=== PATIENT | male | born 1965 | race African-American/Black ===

== ENCOUNTER 2021-08-24 15:48 | Emergency (ER) | payer BC ==
[~2021-08-24] VITALS: Ht 165.1 cm; Wt 90.0 kg
[2021-08-24 16:21] VITALS: BP 199/96
[2021-08-24] MEDS ORDERED: HYDROcodone/APAP 5/325MG 1 TAB TABLET PO ONE (17:15)
--- NOTE | 2021-08-24 17:28 | PHYS DOC ---
Past Medical History Past Surgical History: No Surgical History General Adult EDM: Chief Complaint: ANKLE PROBLEM HPI: HPI: Patient is a 55 year old male who presents with was going down some stairs when he missed the last stair and slipped injuring his left ankle. He has swelling and pain to left medial and lateral side of his ankle. States he cannot bear weight on it. He did not take any pain medication prior to arrival. He rates his pain a aching 9/10. Denies numbness or tingling or focal weakness. Review of Systems: Review of Systems: Constitutional: Denies fever or chills. [] Eyes: Denies change in visual acuity. [] HENT: Denies nasal congestion or sore throat. [] Respiratory: Denies cough or shortness of breath. [] Cardiovascular: Denies chest pain or edema. [] GI: Denies abdominal pain, nausea, vomiting, bloody stools or diarrhea. [] : Denies dysuria. [] Musculoskeletal: Denies back pain or joint pain. [] Integument: Denies rash. [] Neurologic: Denies headache, focal weakness or sensory changes. [] Endocrine: Denies polyuria or polydipsia. [] Lymphatic: Denies swollen glands. [] Psychiatric: Denies depression or anxiety. [] Heart Score: C/O Chest Pain: No Current Medications: Current Medications Medications (Trade) Dose Ordered Sig/Renetta Start Time Stop Time Status Last Admin Dose Admin Acetaminophen/ Hydrocodone Bitart (Lortab 5/325) 1 tab 1X ONCE 08/24/21 17:15 08/24/21 17:16 DC Allergies: Allergies: Allergies Coded Allergies Type Severity Reaction Last Updated Verified No Known Drug Allergies 08/24/21 No Physical Exam: PE: Constitutional: Well developed, well nourished, no acute distress, non-toxic appearance. [] HENT: Normocephalic, atraumatic, bilateral external ears normal, oropharynx moist, no oral exudates, nose normal. [] Eyes: PERRLA, EOMI, conjunctiva normal, no discharge. [] Neck: Normal range of motion, no tenderness, supple, no stridor. [] Cardiovascular:Heart rate regular rhythm, no murmur [] Lungs & Thorax: Bilateral breath sounds clear to auscultation [] Abdomen: Bowel sounds normal, soft, no tenderness, no masses, no pulsatile masses. [] Skin: Warm, dry, no erythema, no rash. [] Back: No tenderness, no CVA tenderness. [] Extremities: No tenderness, no cyanosis, no clubbing, ROM intact, no edema. [] Neurologic: Alert and oriented X 3, normal motor function, normal sensory function, no focal deficits noted. [] Psychologic: Affect normal, judgement normal, mood normal. [] Current Patient Data: Vital Signs: Vital Signs Date Time Temp Pulse Resp B/P (MAP) Pulse Ox O2 Delivery O2 Flow Rate FiO2 08/24/21 16:21 98.9 80 16 199/96 (130) 94 Room Air 98.9 EKG: EKG: [] Radiology/Procedures: Radiology/Procedures: [] Impression: [facility] [address] [place] [address] IMAGING REPORT Signed PATIENT: DORENE NIETO ACCOUNT: [id number] : 1965 LOCATION: ER AGE: 55 SEX: M EXAM STATUS: REG ER ORD. PHYSICIAN: BOOM DAS APRN REASON: pain PROCEDURE: ANKLE LEFT 3V EXAMINATION: Left ankle radiograph. VIEWS: 3 views COMPARISON: None INDICATION:55 years, Male, pain. FINDINGS: Obliquely oriented mildly displaced fracture of the distal fibula at the tibiofibular syndesmosis. Ankle mortise appears congruent. No evidence of dislocation. Soft tissue swelling about the ankle. IMPRESSION: Acute mildly displaced distal fibular Lora B fracture. Electronically signed by: Khari Peralta DO (08/24/2021 5:26 PM) [facility] DICTATED and SIGNED BY: KHARI PERALTA DO DATE: 08/24/21 [id number] 0 Course & Med Decision Making: Course & Med Decision Making Pertinent Labs and Imaging studies reviewed. (See chart for details) See HPI. Alert and oriented x4. Ambulatory with a steady gait but limping on the left lower extremity. Left ankle is swollen 2+ with tenderness to the late ral and medial aspect of the ankle. No bruising noted. No deformity noted. No laxity but range of motion is not intact due to swelling and pain. He can wiggle his toes. Pedal pulses strong present. Skin pink warm and dry. Cap refill less than 2 seconds. Patient placed in a stirrup and posterior splint. Patient be given a prescription for crutches. I spoke to Dr. Hughes the orthopedic and he states that the patient can call the office tomorrow morning and they will work him in to be seen this week. Splint assessment: Neurovascularly intact post splint replacement with good fit. Patient's extremity symptoms have stabilized well they have been evaluated in the department and are appropriate for outpatient follow-up. No evidence of compartment syndrome, neurologic injury, vascular injury, open joint, open fracture, tendon laceration, or foreign body. [] Dragon Disclaimer: Dragon Disclaimer: This electronic medical record was generated, in whole or in part, using a voice recognition dictation system. Departure Departure Impression: Primary Impression: Ankle fracture, left Qualified Codes: S82.892A - Other fracture of left lower leg, initial encounter for closed fracture Disposition: HOME / SELF CARE / HOMELESS Condition: STABLE Referrals: NO PCP (PCP) MARQUES HUGHES Jr. DO Patient Instructions: Ankle Fracture with Rehab-SportsMed, Cast or Splint Care Additional Instructions: Follow-up with orthopedic by calling tomorrow to get an appointment. Leave your splint on. Use crutches. Remain nonweightbearing. Take medication as prescribed and with food. Member these medications can make you sleepy so do not drive, work heavy machinery or drink alcohol top of them. Scripts Hydrocodone Bit/Acetaminophen (HYDROCODONE-APAP 5-325 ) 1 Tab Tablet 1 TAB PO PRN Q6HRS PRN for PAIN, #15 TAB 0 Refills Prov: SAM WILBURN APRN 08/24/21 SAM WILBURN APRN Aug 24, 2021 17:28
[2021-08-24] MEDS ORDERED: HYDR-2761 PO (17:48)
== END 2021-08-24 18:46 | disposition home or self-care (01) ==
LOC: ER 15:48
DX: S82.892A Other fracture of left lower leg, initial encounter for closed fracture (principal); X50.9XXA Other and unspecified overexertion or strenuous movements or postures, initial encounter; Y93.89 Activity, other specified; Y92.89 Other specified places as the place of occurrence of the external cause; Y99.8 Other external cause status
CPT/HCPCS: 29515; 73610; 99283

== ENCOUNTER → 2021-08-26 | Outpatient (CLI) | payer BC ==
[2021-08-24 16:21] VITALS: BP 199/96
[~2021-08-26] MED LIST: AMLO-187 PO; HYDR-2761 PO; LISI5TAB15 PO
== END ==
LOC: LAB 11:39
PROVIDERS: ATTEND Podiatrist
DX: Z01.812 Encounter for preprocedural laboratory examination (principal); Z20.822 Contact with and (suspected) exposure to COVID-19
CPT/HCPCS: U0003

== ENCOUNTER 2021-08-27 08:27 | Day surgery (SDC) | payer BC ==
[~2021-08-27] VITALS: Ht 167.6 cm; Wt 107.2 kg
[~2021-08-27 08:27] MED LIST changes: -AMLO-187 PO; +HYDROmorphone 2 MG/ML INJ. IVP PRN; +IV RINGERS,LACTATED 1000ML 1,000 ML IV SCH; -LISI5TAB15 PO; +PROCHLORPERAZINE 10 MG/2 ML VIAL. IVP PRN; +fentaNYL PF VIAL 100 MCG/2 ML VIAL IVP PRN
[2021-08-27] MEDS ORDERED: DEXAMETHASONE SOD PHOS 4 MG/ML VIAL ONE (08:47)
[2021-08-27] MEDS ORDERED: ONDANSETRON PF 4 MG/2 ML VIAL. ONE (08:47)
[2021-08-27] MEDS ORDERED: LIDOCAINE 2% PF 5 ML VIAL. ONE (08:47)
[2021-08-27] MEDS ORDERED: PROPOFOL 10 MG/ML (20ML) VIAL. IV ONE (08:47)
[2021-08-27] MEDS ORDERED: fentaNYL PF VIAL 100 MCG/2 ML VIAL ONE ×3 (08:48→12:25)
--- NOTE | 2021-08-27 08:58 | PDOC1 ---
History and Physical Date of Service: DOS: DATE: 08/27/21 TIME: 08:55 Chief Complaint: Chief Complain: ankle fracture History of Present Illness: HPI: History from ED on previous visit "Patient is a 55 year old male who presents with was going down some stairs when he missed the last stair and slipped injuring his left ankle. He has swelling and pain to left medial and lateral side of his ankle. States he cannot bear weight on it. He did not take any pain medication prior to arrival. He rates his pain a aching 9/10. Denies numbness or tingling or focal weakness." Imaging revealed left ankle fracture during that presentation. Patient is now here for surgical correction with Dr. Jiménez. He was doing well when seen at bedside. Held his BP meds this AM. Pain controlled, eager for surgery. Past Medical/Surgical History: PMH/PSH: HTN Allergies: Allergies: Coded Allergies: No Known Drug Allergies (Unverified , 08/26/21) Family History: Family History: HTN Social History: Social History: denies alcohol, tobacco, drug use Current Medications: Current Medications Current Medications Fentanyl Citrate (Fentanyl 2ml Vial) 25 mcg PRN Q5MIN PRN IVP MILD PAIN 1-3; Start 08/27/21 at 06:00; Stop 08/28/21 at 05:59 Fentanyl Citrate (Fentanyl 2ml Vial) 50 mcg PRN Q5MIN PRN IVP MODERATE PAIN 4- 6; Start 08/27/21 at 06:00; Stop 08/28/21 at 05:59 Morphine Sulfate (Morphine Sulfate) 1 mg PRN Q10MIN PRN IVP SEVERE PAIN 7-10; Start 08/27/21 at 06:00; Stop 08/28/21 at 05:59 Ringer's Solution 1,000 ml @ 30 mls/hr Q24H IV ; Start 08/27/21 at 06:00; Stop 08/27/21 at 17:59 Hydromorphone HCl (Dilaudid) 0.5 mg PRN Q10MIN PRN IVP SEVERE PAIN 7-10, 2nd CHOICE; Start 08/27/21 at 06:00; Stop 08/28/21 at 05:59 Prochlorperazine Edisylate (Compazine) 5 mg PACU PRN PRN IVP NAUSEA, MRX1; Start 08/27/21 at 06:00; Stop 08/28/21 at 05:59 Cefazolin Sodium/ Dextrose 50 ml @ 100 mls/hr 1X PREOP PRN IV PRIOR TO PROCEDURE; Start 08/27/21 at 06:00; Stop 08/27/21 at 18:00 Propofol (Diprivan) 200 mg STK-MED ONCE IV ; Start 08/27/21 at 08:47; Stop 08/27/21 at 08:48; Status DC Dexamethasone Sodium Phosphate (Decadron) 4 mg STK-MED ONCE .ROUTE ; Start 08/27/21 at 08:47; Stop 08/27/21 at 08:48; Status DC Lidocaine HCl (Lidocaine Pf 2% Vial) 5 ml STK-MED ONCE .ROUTE ; Start 08/27/21 at 08:47; Stop 08/27/21 at 08:48; Status DC Ondansetron HCl (Zofran) 4 mg STK-MED ONCE .ROUTE ; Start 08/27/21 at 08:47; Stop 08/27/21 at 08:48; Status DC Fentanyl Citrate (Fentanyl 2ml Vial) 100 mcg STK-MED ONCE .ROUTE ; Start 08/27/21 at 08:48; Stop 08/27/21 at 08:48; Status DC Active Scripts Active Hydrocodone-Apap 5-325 (Hydrocodone Bit/Acetaminophen) 1 Tab Tablet 1 Tab PO PRN Q6HRS PRN ROS: Review of Systems Review of System unless noted in HPI 14pt ROS negative Physical Exam: Physcial Exam: GEN: No apparent distress. Alert and oriented HEENT: Normal cephalic, atraumatic, external auditory canals are patent EYES: Extraocular muscles are intact, pupil are equally round and reactive to light and accommodation MUSCULOSKELETAL: Well developed , well nourished, good range of motion ENDOCRINE: No thyromegaly was palpated LYMPHATICS: No cervical chain or axillary nodes were noted HEMATOPOIETIC: No bruising NECK: Supple, no JVD, no thyromegaly was noted LUNGS: Clear to auscultation in all lung skaggs without rhonchi or wheezing HEART: RRR, S!, S2 present. Peripheral pulses intact, no obvious murmurs noted ABDOMEN: Soft, nontender. Positive bowel sounds, no organomegaly, normal bowel sounds EXTREMITIES: Without clubbing, cyanosis, or edema. Pedal pulses intact. Negative Homans sign NEUROLOGIC: Normal speech and tone. A&O x 3, moves all extremities, no obvious focal deficits PSYCHIATRIC: Normal affect, normal mood. Stable SKIN: No ulcerations or rashes, good skin turgor, no jaundice VASCULAR: Good capillary refill, neurovascular bundle appears to be intact Assessment/Plan Assessment/Plan Patient here today for intervention on left ankle fracture Góme[place] of 0. Ok to proceed from hospitalist perspective. Justifications for Admission Other Justification YANIRA DEJESUS MD Aug 27, 2021 08:58
[2021-08-27] MEDS ORDERED: BUPIVACAINE MPF 0.25% 30 ML VIAL. ONE (09:09)
[2021-08-27] MEDS ORDERED: LISI5TAB15 PO (09:11)
[2021-08-27] MEDS ORDERED: AMLO-187 PO (09:11)
[2021-08-27] MEDS ORDERED: MIDAZOLAM HCL/PF 2 MG/2 ML VIAL. ONE (10:53)
--- NOTE | 2021-08-27 12:18 | PDOC4 ---
OPERATIVE NOTE Date: Date: Aug 27, 2021 Pre-Op Diagnosis: Distal fibular fracture with minimal displacement, left Weightbearing x-ray remarked mild diastasis at the medial gutter space without significant talar tilt, left. This concerns for syndesmotic joint instability. Less than 5% posterior tibial fracture, extra-articular, left Post-Op Diagnosis: Same as above Procedure Performed: Left fibula ORIF and syndesmotic stabilization Surgeon: Andrés Otero DPM Anesthesia Type: General Blood Loss: 5 cc Specimans Obtained: None Findings: Oblique distal fibula fracture with slight telescoping proximally and external rotation. Upon stress, there was a subtle syndesmotic joint gapping and instability intraoperatively. After syndesmotic repair, there was no talar tilt, medial gutter widening. The dime sign and Shenton line were restored Complications: None Operative Note: Under mild sedation, patient was brought into the operating room and placed on an operating table in a supine position. Following a formal timeout, patient's identity, procedure and procedure sites were confirmed. Following IV prophylactic antibiotics, general anesthesia, a well-padded thigh tourniquet was placed to the left lower extremity. Then the left lower extremity was then scrubbed, prepped and draped using standard aseptic techniques. An Esmarch was used to exsanguinate the left foot and ankle and tourniquet was inflated to 250 millimercury. The attention was directed to the left ankle where a standard lateral approach was performed. Great care was taken to identify and retract all the neurovascular bundles including the superficial peroneal nerve. All bleeders were cauterized as necessary. Using sharp and blunt dissection, incision was taken deep to periosteum which was incised. Intraoperatively, we found an oblique distal fibula fracture with mild proximal telescoping and external rotation. The hematoma was evacuated and all interposed periosteum was removed from the fracture site. The wound was irrigated with copious saline then. At this time, the fracture was reduced with 2 bone clamps. Using standard AO technique, the fracture was stabilized with 3.5 millimeter screws from A to P. Intraoperative x-ray noted adequate fibular length buddhism with restored dime sign. Then a standard anatomical fibular plate was placed to the lateral fibula and temporarily affixed with 2 olive wires. Intraoperative x-ray noted adequate position allowing potential 2 syndesmotic screws and adequate proximal fracture bridging. Then using standard AO techniques, a combination of locking and nonlocking 3.5 millimeter screws were used to affix the plate to the fibula. Again intraoperative x-ray noted adequate hardware position and length. Intraoperative syndesmotic stress test was performed which noted subtle diastases across the distal syndesmotic joint. Although, preoperative x-ray was insignificant for talar tilt upon weightbearing. However there was slight widening to the medial gutter. Then the decision was made to place a flexible suture button device to further stabilize the syndesmotic joint. Synchfix from the [employer] was used and placed through the distal fibular plate parallel to the joint line, and exiting at the medial bisection of the distal tibia. The flexible suture button device's position, trajectory and length were confirmed with satisfactory using intraoperative x-ray. Then stress test was noted negative. Shenton line and dime sign were restored. Lateral x-ray also remarked a small avulsion fracture at the posterior distal tibia, less than 5% extra-articular involvement. No surgical repair was indicated at that time. The surgical sites were irrigated with copious saline solution. They were then closed in layers with 3-0 Vicryl, 4 Monocryl and metallic christopher. Then the surgical sites were anesthetized with 10 cc of 0.25% Marcaine plain. The sites were dressed with Betadine soaked Adaptic, 4 x 4, ABD. The left lower extremity was then immobilized in a modified Vance compression splint with ankle held near 90 degrees. Then the tourniquet was deflated and adequate digital perfusion was noted. Patient tolerated the procedure and anesthesia well and then transferred to PACU for continuous recovery. Pending left ankle 3 view x-ray. ANDRÉS OTERO DPM Aug 27, 2021 12:18
[2021-08-27] MEDS ORDERED: ACETAMINOPHEN 325 MG TABLET. PO ONE (12:30)
[2021-08-27] MEDS: fentaNYL PF VIAL 100 MCG/2 ML VIAL IVP PRN ×2 (12:30→12:49)
[2021-08-27] MEDS ORDERED: oxyCODONE/APAP 5/325 1 TAB TABLET PO ONE (12:30)
[2021-08-27] MEDS ORDERED: MORPHINE SULFATE 2 MG/ML INJ. ONE (12:45)
[2021-08-27] MEDS: MORPHINE SULFATE 2 MG/ML INJ. IVP PRN ×2 (12:49→13:06)
[2021-08-27 13:31] VITALS: BP 152/86
== END 2021-08-27 14:00 | disposition home or self-care (01) ==
LOC: SURG 08:27
PROVIDERS: ATTEND Podiatrist
DX: S82.62XA Displaced fracture of lateral malleolus of left fibula, initial encounter for closed fracture (principal); M25.372 Other instability, left ankle; I10 Essential (primary) hypertension; G47.30 Sleep apnea, unspecified; Z79.899 Other long term (current) drug therapy; Z98.890 Other specified postprocedural states; X58.XXXA Exposure to other specified factors, initial encounter; Y93.89 Activity, other specified; Y92.89 Other specified places as the place of occurrence of the external cause; Y99.8 Other external cause status
CPT/HCPCS: 27792; 27829; A4209; A4930; A6253; A6402; A6449; A6450; C1713; J0690; J1100; J2250; J2270; J2405; J2704; J3010; J3490; 76000; A4223